=== PATIENT | male | born 1995 | race Two or more races ===

== ENCOUNTER 2018-02-12 18:18 | Emergency (ER) | payer MEDICAID, OTHER ==
[~2018-02-12] VITALS: Ht 180.3 cm; Wt 81.6 kg
[2018-02-12 18:24] VITALS: BP 144/77
[2018-02-12] MEDS ORDERED: KETOROLAC TROMETH 60MG/2ML VIAL IM ONE (20:30)
== END 2018-02-12 22:00 | disposition home or self-care (01) ==
LOC: ER 18:18
DX: S82.891A Other fracture of right lower leg, initial encounter for closed fracture (principal); W20.8XXA Other cause of strike by thrown, projected or falling object, initial encounter; Y93.89 Activity, other specified; Y92.89 Other specified places as the place of occurrence of the external cause; Y99.8 Other external cause status
CPT/HCPCS: 29515; 73610; 96372; 99284; J1885